=== PATIENT | female | born 1980 | race Caucasian/White ===

== ENCOUNTER 2017-12-20 11:30 | Emergency (ER) | payer BC, SELFPAY ==
[2017-12-20 11:30] VITALS: BP 154/97; PULSE 71; RESP 16; TEMP 36.8; O2SAT 100; BMI 34.4
[2017-12-20] MEDS: morphine 8 MG/ML Syringe IM (13:08)
[2017-12-20] MEDS: Ondansetron 8 MG Tablet PO (13:09)
[2017-12-20 14:11] VITALS: BP 122/93; PULSE 52; RESP 16; O2SAT 100
--- NOTE | 2017-12-20 14:12 | ED.DEP ---
ED Disposition - Plan for ED Patient: Chief Complaint: Back Instructions: ED Neck Back Pain General Prescriptions: Oxycodone HCl/Acetaminophen [Percocet 5/325] 1 tablet PO Q6H PRN PRN 3 Days #12 tablet PRN Reason: Pain Referrals: Semaj Romero [Primary Care Provider] -
[2017-12-20] MEDS: diazePAM 2 MG Tablet PO (14:37)
== END 2017-12-20 14:39 | disposition home or self-care (01) ==
LOC: ED 11:51
PROVIDERS: Emergency Provider Emergency Medicine; Family Provider Student in an Organized Health Care Education/Training Program; PCP Student in an Organized Health Care Education/Training Program
DX: M54.9 Dorsalgia, unspecified (principal); F32.9 Major depressive disorder, single episode, unspecified
CPT/HCPCS: 96372; 99283

== ENCOUNTER 2018-02-04 10:11 | Day surgery (SDC) | payer BC, SELFPAY ==
[2018-01-30 17:28] LABS: Hematocrit 37.7 % (37-47); Hemoglobin 12.9 g/dl (12.0-15.0); Mean Corp Hgb Conc 34.2 g/gl (32-36); Mean Corpuscular Volume 87.7 fL (81-99); Mean Platelet Vol. 11.3 fl (6.2-12.0); Platelet Count 302 K/mm3 (150-450); RBC Distribution Width CV 12.6 % (11.6-14.6); RBC Distribution Width SD 39.8 fl (35.1-43.9); Scan Indicated on CBC? Y/N NO; White Blood Count 7.3 K/mm3 (4.4-11.0)
[2018-01-30 17:39] LABS: International Normalized Ratio 0.9; Prothrombin Time (Protime)PT. 12.6 SECONDS (11.7-14.9)
[2018-01-30 17:40] LABS: Partial Thromboplast Time 26.7 Seconds (24.1-36.2)
[2018-01-30 18:25] LABS: hCG Titer Quant., Serum < 1 mIU/mL (<9 non-preg)
[2018-01-30 18:33] LABS: Internal QC Validated? YES +Cl - CLEAR BKGD; Pregnancy, Urine Negative Negative
[2018-02-04 10:32] LABS: Internal QC Validated? YES +Cl - CLEAR BKGD; Pregnancy, Urine Negative Negative
[2018-02-04 10:38] VITALS: BP 109/70; PULSE 65; RESP 14; TEMP 36.8; O2SAT 97; BMI 34.6
--- NOTE | 2018-02-04 12:52 | PCM.DC ---
You will use the following diet at home:: No restrictions Your food should be the consistency of: Regular Discharge Activity: Return to Normal Activity, May Drive, May not drive while taking narcotic pain medications., May Shower Return to work on:: 02/12/18 May shower in (days): 0 May resume sexual activity in: 2 weeks Call your doctor if your incision/area has: Sudden Increased Bleeding, Increased Pain/ Swelling, Increased Redness, Foul Smelling Discharge, Swelling at the incision site Call your doctor if you observe: Fever of 101 or Higher, Inability to urinate, Inability to have a bowel movement, Using more than one pad per hour, Shortness of breath, Chest pain, Calf discomfort, Uncontrolled pain Remove Dressing in (days):: 2 Cleanse incision/area with: Soap & Water Allergies/Adverse Reactions: Allergies diphenhydramine [From Benadryl] Allergy (Verified 01/28/18 14:30) Swelling iodine Allergy (Verified 01/28/18 14:30) Hives latex Allergy (Verified 01/28/18 14:30) Rash povidone-iodine [From Betadine] Allergy (Verified 01/28/18 14:30) Other soap [From Betadine] Allergy (Verified 01/28/18 14:30) Other Medications to take at Discharge Fluoxetine [Prozac] 10 mg PO DAILY 12/20/17 Loratadine [Claritin] 10 mg PO DAILY 01/28/18 Lorazepam [Ativan] 0.5 mg PO DAILY PRN PRN 01/28/18 Sumatriptan Succinate [Imitrex] 100 mg PO .X1 PRN 01/28/18 Ibuprofen 600 mg PO Q6H PRN PRN #30 tab 02/04/18 Oxycodone [Oxyir] 5 mg PO Q4H PRN PRN 7 Days #20 tab 02/04/18 The following prescriptions were given: Oxycodone [Oxyir] 5 mg PO Q4H PRN PRN 7 Days #20 tab PRN Reason: Severe Pain (6-10/10) Ibuprofen 600 mg PO Q6H PRN PRN #30 tab PRN Reason: pain or cramping Primary Care Physician: Semaj Romero [Primary Care Provider] - Please Follow Up With: Feliberto Hahn MD When: one week Proposed Discharge Date: 02/04/18
--- NOTE | 2018-02-04 13:22 | PCM.OPRPT ---
Problem List (1) Pelvic pain Status: Chronic Report of Operation Date of Procedure: 02/04/18 Pre-Operative Diagnosis: Chronic pelvic pain Post-Operative Diagnosis: Same Surgery/Procedure Performed:: Diagnostic laparoscopy Description of Surgical Findings:: Normal appearing uterus, ovaries, and fallopian tubes. No pelvic congestion visualized. No signs of any endometriotic implants. Liver and stomach appeared normal. No bowel adhesions or scarring. plant maintenance technician: Pedro Luis Hurley Type of Anesthesia:: General Anesthesiologist: Thee Payne Special Medications: none Specimen's removed: none Drains: none Estimated Blood Loss (mL): minimal Fluids Replaced: 1000cc LR Description of Procedure: Maritza was taken to the OR with IV running. She was given Cefotetan two grams intravenously for surgical prophylaxis prior to the procedure. General anesthesia was introduced without complication. She was prepped and draped in the dorsal lithotomy position. A silicone catheter was used to drain the bladder. A uterine manipulator was placed. Attention was then directed to the abdomen. A 5mm vertical skin incision was made in the lower base of the umbilicus. The underlying subcutaneous tissue was dissected down to the level of the fascia using blunt dissection with a Elizabeth clamp. The abdominal wall was then elevated and a Veress needle was placed through the umbilical defect into the abdomen. The abdomen was then inflated with CO2 gas to a pressure of 15 Torr. The Veress needle was then removed and replaced with a 5mm laparoscopic trocar and sleeve. The trocar was removed and replaced with the laparoscope. An additional 5 mm port was placed on the right side at the level of the umbilicus lateral to the inferior epigastric vessels. A thorough survey of the abdomen and pelvis was then performed with findings as above. The lateral port was then removed. Gas was evacuated from the abdomen and the umbilical port was removed. The skin incisions were closed with 4-0 Monocryl suture. The skin sites were injected with 0.25% Marcaine. Sponge, needle, and instrument counts were correct. She was reversed from anesthesia and taken to the recovery room in stable condition. Grafts/Implants Used: none - Complications none - Admit VTE Documentation VTE Present on Admission: No VTE Mechan Device Prophylaxis: SCD's VTE Pharm Prophylaxis ordered?: No
[2018-02-04] MEDS: Bupivacaine 0.25% 30 ML Vial (13:36)
[2018-02-04 14:47] VITALS: BP 109/70; BP 118/78; PULSE 79; RESP 15; TEMP 36.2; O2SAT 93
[2018-02-04 15:00] VITALS: BP 109/70; BP 112/69; PULSE 71; RESP 16; O2SAT 93
[2018-02-04 15:15] VITALS: BP 104/67; BP 109/70; PULSE 69; RESP 16; O2SAT 94
[2018-02-04 15:20] VITALS: BP 102/73; BP 109/70; PULSE 63; RESP 16; TEMP 37.3; O2SAT 96
[2018-02-04 16:20] VITALS: BP 109/70; BP 120/78; PULSE 72; RESP 18; TEMP 36.8; O2SAT 99
== END 2018-02-04 16:22 | disposition home or self-care (01) ==
LOC: SDC 10:13 → AC 11:38
PROVIDERS: Family Provider Student in an Organized Health Care Education/Training Program; PCP Student in an Organized Health Care Education/Training Program; Visit Provider Obstetrics & Gynecology
PROC: (CPT 49320; principal; 2018-02-04 11:40)
DX: R10.2 Pelvic and perineal pain (principal); G89.29 Other chronic pain; N94.6 Dysmenorrhea, unspecified; J45.909 Unspecified asthma, uncomplicated; K21.9 Gastro-esophageal reflux disease without esophagitis; F32.9 Major depressive disorder, single episode, unspecified; F41.9 Anxiety disorder, unspecified
CPT/HCPCS: 00840; 49320; 36415; 81025; 84702; 85027; 85610; 85730; 86850; 86900; J7120

== ENCOUNTER 2020-11-30 10:54 | Outpatient (RCR) | payer MEDICARE, SELFPAY | END 2021-01-16 23:59 | LOC: IMMUN 10:54 | PROVIDERS: PCP Student in an Organized Health Care Education/Training Program; Referring Provider Family Medicine; Visit Provider Family Medicine | DX: Z23 Encounter for immunization (principal) | CPT/HCPCS: 0001A; 0002A; 91300 ==

== ENCOUNTER 2023-07-05 02:49 | Emergency (ER) | payer OTHER, SELFPAY ==
[2023-07-05 03:01] VITALS: BP 119/86; PULSE 73; RESP 16; TEMP 36.7; O2SAT 99; BMI 27.6
[2023-07-05 03:03] VITALS: BP 119/86; PULSE 73; RESP 16; TEMP 36.7; O2SAT 99
--- NOTE | 2023-07-05 03:16 | CT_ITS ---
EXAM: CT abdomen and pelvis without contrast HISTORY: flank pain TECHNIQUE: No intravenous contrast. A radiation dose optimization technique was used for this scan. COMPARISON: None. LIMITATIONS: None. LOWER CHEST: Normal. LIVER: Normal. GALLBLADDER: Removed. BILE DUCTS: Normal. PANCREAS: Normal. SPLEEN: Normal. ADRENAL GLANDS: Normal. KIDNEYS/URETERS/BLADDER: A 3 mm obstructing stone is in the distal right ureter several centimeters proximal to the ureterovesicular junction. There is moderate right hydronephrosis and hydroureter. AORTA: Normal caliber. BOWEL/MESENTERY: A moderate to large amount of stool is identified. No evidence of colitis. No small bowel obstruction. Postsurgical changes in the stomach. A stimulator terminates at the distal stomach. APPENDIX: Not visualized. PERITONEUM: Normal. REPRODUCTIVE ORGANS: Hysterectomy. BONES/SOFT TISSUES: No acute fracture. OTHER: None. CONCLUSION: 3 mm obstructing stone in the distal right ureter with associated moderate hydronephrosis. Electronically Signed: Maciej Quezada MD at 5:34 EST , CT/Abdomen/Pelvis without Cont IMPRESSION: undefined
[2023-07-05 03:24] LABS: Absolute Lymphocyte Count 1.91 X10^3/uL (0.83-4.51); Absolute Neutrophil Count 5.3 X10^3/uL (2.0-7.7); Basophil# 0.05 X10^3/uL; Basophil% 0.6 % (0-1); Eosinophil# 0.12 X10^3/uL; Eosinophils% 1.5 % (0-5); Hematocrit 36.3 % (37-47); Hemoglobin 12.4 g/dL (12.0-15.0); Lymphocyte # 1.91 X10^3/ul (0.83-4.51); Lymphocyte % 24.5 % (19-41); Mean Corp Hgb Conc 34.2 g/dL (32-36); Mean Corpuscular Hgb 29.6 pg (27.0-32.0); Mean Corpuscular Volume 86.6 fL (81-99); Mean Platelet Vol. 10.7 fl (6.2-12.0); Monocyte# 0.37 X10^3/uL; Monocyte% 4.7 % (0-10); NRBC Flagged by Analyzer 0 % (0-5); Neutrophil # 5.33 X10^3/uL (2.7-7.7); Neutrophil % 68.4 % (47-70); Platelet Count 251 K/mm3 (150-450); RBC Distribution Width CV 12.1 % (11.6-14.6); RBC Distribution Width SD 38.4 fl (35.1-43.9); Red Blood Count 4.19 M/mm3 (4.2-5.4); White Blood Count 7.8 K/mm3 (4.4-11.0)
[2023-07-05] MEDS: Ondansetron 4 MG/2 ML Vial IV (03:26)
[2023-07-05] MEDS: Morphine 4 MG/ML Syringe IV (03:27)
[2023-07-05] MEDS: Ketorolac 30 MG/ML Syringe IV (03:30)
[2023-07-05] MEDS: 0.9% Normal Saline (1000mL) 1,000 ML 999 ML IV (03:32)
[2023-07-05 03:37] LABS: Anion Gap 9 (5-15); BUN 14 mg/dL (7-18); BUN/Creat Ratio 12.8 RATIO (10-20); Calcium,Total 9.7 mg/dL (8.5-10.1); Chloride 110 mmol/L (98-107); Creatinine, Serum 1.09 mg/dL (0.55-1.02); EST Glomerular Filtration Rate 58 mL/min (>60); Est Glom Filt Rate - Afr Amer 71 mL/min (>60); Estimated Creatinine Clearance 65.38 ml/min; Glucose 130 mg/dL (74-106); Potassium 3.3 mmol/L (3.5-5.1); Sodium Level 141 mmol/L (136-145)
[2023-07-05 04:06] LABS: Mucous, Urine 0 SEEN /hpf (<or=2+); Squamous Epithelial Cells - UA 0 SEEN /hpf (5-10)
[2023-07-05 04:07] LABS: Color, Urine Yellow (Yellow); Glucose, Dipstick Normal (Normal); Ketone-Dipstick 15 mg/dl (Negative); Leukocyte Esterase-Dipstick 25 /ul (Negative); Nitrite-Dipstick Negative (Negative); Occult Blood-Urine 25 /ul (Negative); Protein-Dipstick 15 mg/dl (Negative); Specific Gravity, Urine 1.015 (1.002-1.030); Urine Bilirubin Dipstick Negative (Negative); Urine Clarity Cloudy (Clear); Urine Urobilinogen Normal (Normal)
[2023-07-05 04:18] LABS: Amorphous Sediment 3+; Bacteria 2+ /hpf (None Seen); Red Blood Cells-Urine 0-5 SEEN /hpf (0-5); White Blood Cells 5-10 SEEN /hpf (0-5)
--- NOTE | 2023-07-05 05:48 | EDS_ITS ---
HPI History of Present Illness Chief Complaint: Flank Pain Informant: patient Narrative Narrative: Patient is a 42-year-old female with past medical history of GERD and need for gastric pacemaker placement. She states around 5 PM today she developed right- sided flank/abdominal pain that came on suddenly and is sharp and stabbing in nature. She denies any recent trauma or increased physical activity. She reports history of hysterectomy and nephrectomy and denies any concern for and she denies any dysuria or concern for STD. She states that pain has been constant since 5 and will not resolve with oaff-nul-gavvvmc medications and therefore she comes in for evaluation [facility] Medical History (Updated 07/05/23 @ 05:[address] Eloy Enriquez, ) Anemia Anxiety Asthma Bilateral headaches Environmental allergies GERD (gastroesophageal reflux disease) Presence of gastric pacemaker Home Medications fluoxetine 10 mg capsule 10 mg PO DAILY 12/20/17 [History Last Taken Unknown] lorazepam 0.5 mg tablet 0.5 mg PO DAILY PRN PRN Anxiety 01/28/18 [History Last Taken Unknown] sumatriptan succinate 100 mg tablet (Imitrex) 100 mg PO .X1 PRN 01/28/18 [History Last Taken Unknown] aprepitant 80 mg capsule 80 mg PO DAILY 07/05/23 [History Last Taken Unknown] cephalexin 500 mg capsule 500 mg PO TID 7 days #21 caps 07/05/23 [Rx Last Taken Unknown] docusate sodium 100 mg capsule (Colace) 100 mg PO BID 10 days #20 caps 07/05/23 [Rx Last Taken Unknown] escitalopram oxalate 10 mg tablet 10 mg PO DAILY 07/05/23 [History Last Taken Unknown] ketorolac 10 mg tablet 10 mg PO 4X/DAY PRN PRN pain 5 days #20 tabs 07/05/23 [Rx Last Taken Unknown] ondansetron 4 mg disintegrating tablet 4 mg PO TID PRN nausea and vomiting #21 tabs 07/05/23 [Rx Last Taken Unknown] ondansetron HCl 8 mg tablet 8 mg PO DAILY PRN 07/05/23 [History Last Taken Unknown] oxycodone-acetaminophen 5 mg-325 mg tablet (Percocet) 1 tab PO Q6H PRN pain 5 days #20 tabs 07/05/23 [Rx Last Taken Unknown] pantoprazole 40 mg tablet,delayed release 40 mg PO DAILY 07/05/23 [History Last Taken Unknown] tamsulosin 0.4 mg capsule (Flomax) 0.4 mg PO DAILY 14 days #14 caps 07/05/23 [Rx Last Taken Unknown] Allergy/AdvReac Type Severity Reaction Status Date / Time chlorhexidine Allergy Hives Verified 07/05/23 02:56 diphenhydramine Allergy Swelling Verified 07/05/23 02:56 [From Benadryl] iodine Allergy Hives Verified 07/05/23 02:56 latex Allergy Rash Verified 07/05/23 02:56 povidone-iodine Allergy Other Verified 07/05/23 02:56 [From Betadine] soap [From Betadine] Allergy Other Verified 07/05/23 02:56 Family History Other Anxiety Bowel disease CVA (cerebral vascular accident) Hypertension Osteoporosis Surgical History History of appendectomy History of cholecystectomy History of Paul fundoplication Social History (Updated 05/30/20 @ 08:[address] Nohemi Levi, [place]) Smoking Status: Never smoker alcohol intake: never substance use type: does not use what type of physical activity do you participate in: none ROS ROS ED Constitutional Constitutional ED: Denies chills or fever(s) ENT ENT ED: Denies sore throat Cardiovascular Cardiovascular: Denies chest pain Respiratory/Chest Respiratory/Chest: Denies cough or dyspnea Gastrointestinal Gastrointestinal: Reports abdominal pain, constipation and nausea; Denies diarrhea or vomiting Genitourinary Genitourinary ED: Denies dysuria Musculoskeletal Musculoskeletal: Reports back pain; Denies myalgias Integumentary Denies rash Neurologic Neurologic: Denies headache(s) Hematologic/Lymphatic Hematologic/Lymphatic: Denies easy bleeding or easy bruising EXAM Physical Exam Const Vital Signs: 07/05/23 03:01 07/05/23 03:03 Temperature 98.1 F 98.1 F Temperature Source Oral Oral Pulse Rate 73 73 Respiratory Rate 16 16 Blood Pressure 119/86 H 119/86 H Blood Pressure Mean 97 97 Pulse Ox 99 99 Oxygen Delivery Method Room Air Room Air Positive well nourished and well developed General Appearance ED: well developed HEENT HEENT Narrative: Normocephalic atraumatic Eyes PERRL and EOMs intact bilaterally General Eye ED: Negative for scleral icterus Neck supple and no JVD Resp normal respiratory effort and clear to auscultation bilaterally Cardio regular rate and regular rhythm Rate: other Other Details: Heart is regular rate and rhythm without murmurs rubs or gallop Radial and carotid pulses are equal and symmetric GI non-distended GI Narrative: Abdomen is soft and nondistended with normal active bowel sounds there is mild pain with palpation in the right upper mid and lower abdomen without voluntary guarding or rigidity. No pulsatile mass or fluid wave Auscultation: normoactive bowel sounds Palpation: soft Back/Spine Back/Spine Narrative: Positive right CVA pain noted Extremity normal to inspection Neuro oriented x3, CN's II-XII intact bilaterally and no sensory deficits noted Sensorium / Orientation: alert Motor Exam: strength 5/5 throughout Psych mental status grossly normal Skin no rashes or lesions noted Skin Narrative: No overlying soft tissue changes to suggest trauma or infection General Skin Exam: Negative for jaundice MDM MDM MDM Narrative Medical decision making narrative: Patient presented to the ER with stable vitals but reported sudden onset right- sided flank pain that is sharp in nature. Differential diagnosis is for kidney stone versus pyelonephritis versus UTI versus biliary colic versus common bile duct stone versus pancreatitis. Basic labs were obtained which show no clinically significant finding. Noncontrast CT was ordered and does display a 3 mm stone in the right distal ureter consistent with her exam. She does not have signs of urosepsis or acute kidney injury and after treatment IV hydration morphine and Toradol had resolution of pain. Therefore at this time as she is not uroseptic or showing EVE and her pain is now controlled there is no need for further treatment in the ER and patient is otherwise safe for discharge History & Record Review Discussion w/independent historian: Patient and Family Lab Data Attestation: I reviewed the patient's lab results. Labs: Laboratory Results - last 24 hr 07/05/23 07/05/23 03:12 04:00 WBC 7.8 RBC 4.19 L Hgb 12.4 Hct 36.3 L MCV 86.6 MCH 29.6 MCHC 34.2 RDW Std Deviation 38.4 RDW Coeff of Indu 12.1 Plt Count 251 MPV 10.7 Immature Gran % (Auto) 0.300 Neut % (Auto) 68.4 Lymph % (Auto) 24.5 Frontier % (Auto) 4.7 Eos % (Auto) 1.5 Baso % (Auto) 0.6 Absolute Neuts (auto) 5.3 Absolute Lymphs (auto) 1.91 Nucleated RBC % 0 Sodium 141 Potassium 3.3 L Chloride 110 H Carbon Dioxide 22.0 Anion Gap 9 BUN 14 Creatinine 1.09 H Estim Creat Clear Calc 65.38 Est GFR (MDRD) Af Amer 71 Est GFR (MDRD) Non-Af 58 L BUN/Creatinine Ratio 12.8 Glucose 130 H Calcium 9.7 Urine Color Yellow Urine Clarity Cloudy Urine pH 8.0 Ur Specific [place] 1.015 Urine Protein 15 H Urine Glucose (UA) Normal Urine Ketones 15 H Urine Occult Blood 25 H Urine Nitrite Negative Urine Bilirubin Negative Urine Urobilinogen Normal Ur Leukocyte Esterase 25 H Urine RBC 0-5 SEEN Urine WBC 5-10 SEEN Ur Squamous Epith Cells 0 SEEN Amorphous Sediment 3+ Urine Bacteria 2+ Urine Mucus 0 SEEN Radiography Diagnostic Testing: Clinical Impression(s) from Imaging Studies Abdomen/Pelvis CT 07/05/23 03:16 IMPRESSION: undefined Discharge Plan Triage Chief Complaint: Flank Pain ED Provider: Eloy Enriquez Dx/Rx/DC Orders Clinical Impression: Renal colic, Kidney stone on right side, Constipation Instructions: ED Kidney Stone w/ Colic Prescriptions: New oxycodone-acetaminophen [Percocet] 5-325 mg tablet 1 tab PO Q6H PRN (Reason: pain) 5 Days Qty: 20 0RF ketorolac 10 mg tablet 10 mg PO 4X/DAY PRN PRN (Reason: pain) 5 Days Qty: 20 0RF ondansetron 4 mg tablet,disintegrating 4 mg PO TID PRN (Reason: nausea and vomiting) Qty: 21 0RF tamsulosin [Flomax] 0.4 mg capsule 0.4 mg PO DAILY 14 Days Qty: 14 0RF cephalexin 500 mg capsule 500 mg PO TID 7 Days Qty: 21 0RF docusate sodium [Colace] 100 mg capsule 100 mg PO BID 10 Days Qty: 20 0RF No Action fluoxetine 10 MG capsule 10 mg PO DAILY sumatriptan succinate [Imitrex] 100 MG tablet 100 mg PO .X1 PRN lorazepam 0.5 MG tablet 0.5 mg PO DAILY PRN PRN (Reason: Anxiety) pantoprazole 40 mg tablet,delayed release (DR/EC) 40 mg PO DAILY Patient Comments: take 1 tablet by mouth every morning escitalopram oxalate 10 mg tablet 10 mg PO DAILY Patient Comments: take 1 tablet by mouth every morning ondansetron HCl 8 mg tablet 8 mg PO DAILY PRN Patient Comments: take 1 tablet by mouth every 8 hours if needed for nausea aprepitant 80 mg capsule 80 mg PO DAILY Primary Care Provider: Care Physician,No Primary Referrals: Nieves Colvin MD [Med Staff - Active Staff] - Care Physician,No Primary [Primary Care Provider] - Activity Restrictions/Additional Instructions: Please return to the ER if you develop a fever over 100.4 or your pain is not controlled with the prescribed medications. Otherwise stay hydrated and follow- up with urology for repeat evaluation Disposition Disposition: Home, Self Care
[2023-07-05 06:06] VITALS: PULSE 86; RESP 18; O2SAT 98
== END 2023-07-05 06:07 | disposition home or self-care (01) ==
PROVIDERS: Emergency Provider Emergency Medicine; Visit Provider Emergency Medicine
DX: N13.2 Hydronephrosis with renal and ureteral calculous obstruction (principal); K59.00 Constipation, unspecified; N23 Unspecified renal colic; Z90.710 Acquired absence of both cervix and uterus; Z90.5 Acquired absence of kidney; F41.9 Anxiety disorder, unspecified; K21.9 Gastro-esophageal reflux disease without esophagitis; Z90.49 Acquired absence of other specified parts of digestive tract
CPT/HCPCS: 74176; 80048; 81001; 85025; 87086; 87088; 96361; 96374; 96375; 99283; J7030; A4216; J2405